=== PATIENT | female | born 1980 | race Caucasian/White ===

== ENCOUNTER 2025-06-17 09:52 | Outpatient (CLI) | payer OTHER, SELFPAY ==
--- NOTE | ~2025-06-17 | US_ITS ---
EXAMINATION: US FNA w image guidance DATE: 06/17/2025 11:17 INDICATION: Bilateral thyroid nodules TECHNIQUE: A time-out was performed to verify the patient's name, date of , and procedure to be performed. The procedure and its benefits and risks were discussed with the patient. Risks specifically discussed included bleeding and infection. The patient understood the risks and agreed to proceed. The neck was prepped and draped in the usual sterile manner. 3 mL 1% lidocaine was used for local anesthesia. 6 passes were made with a 25G needle into the lesion. Appropriate needle location was documented with continuous sonographic guidance. A sterile bandage was applied. There were no immediate complications. FINDINGS: Grayscale ultrasound images demonstrate biopsy needles advanced into an approximately 1.5 cm very hypoechoic nodule with irregular margins at the inferior left thyroid lobe. IMPRESSION: 1. Successful ultrasound-guided fine needle aspiration of a 1.5 cm TI RADS 5 nodule at the inferior left thyroid lobe. Reviewed, dictated and finalized at location A. IMPRESSION: 1. Successful ultrasound-guided fine needle aspiration of a 1.5 cm TI RADS 5 n odule at the inferior left thyroid lobe.
--- OUTSIDE RECORDS SUMMARY | 2025-06-17 10:57 | XMS_ITS | Clinical Summary ---
Author Organization [facility] Address [address] [place] [address] Care Team Providers Care Seo Manager Name Role Phone Sindy Aquino MD, [place] Primary Care Provider [phone] Family History Medical History Relation Comments Breast Cancer Neg Hx Social History Tobacco Use Types Packs/Day Years Used Date Smoking Tobacco: Never Assessed Comments No Sex and Gender Information Value Date Recorded Sex Assigned at Female 02/05/2025 9:05 AM CDT Legal Sex Female 1:39 PM CDT Gender Identity Not on file Sexual Orientation Not on file Plan of Treatment Health Maintenance Due Date Last Done Comments Cervical Cancer Screening Pa p Smear (Age 30 to 64) Every 3 Years 1979 Colorectal Cancer Screening Colonoscopy (10 Years) 1979 Annual Physical 1982 Hepatitis C 1997 DTaP, Tdap and Td Vaccines ( 1 - Tdap) 1998 Hepatitis B Vaccines (1 of 3 - 19+ 3-dose series) 1998 HPV Vaccines (1 - 3-dose SCD M series) 2006 Cervical Cancer Screening Pa p with HPV Testing (Age 30 to 64) Every 5 Years 2009 Cervical Cancer Screening with HPV 2009 COVID-19 Vaccine (2023-2 5 season) 2025 Mammogram Screening 02/05/2027 02/05/2025 Meningococcal B Vaccine Aged Out No l onger eligible based on patient's age to complete this topic Meningococcal Vaccine Aged Out No dorothea sarai eligible based on patient's age to complete this topic Pneumococcal Vaccine: Pediat rics (0 to 5 Years) and At-Risk Patients (6 to 49 Years) Aged Out No longer eligi ble based on patient's age to complete this topic RSV Immunizations Under 20 Months Aged Out No longer eligible based on patient's age to complete this topic Procedures Procedure Name Priority Date/Time Associated Diagnosis Comments MG SCREENING W VAISHALI TRISH DIGI Routine 02/05/2025 9:40 AM CDT Encounter for screening for malignant neoplasm of breast from Last 3 Months or Most Recently Relevant to Health Maintenance Results * MG SCREENING W VAISHALI TRISH DIGI (02/05/2025 9:40 AM CDT) Anatomical Region Laterality Modality Breast Bilateral Mammography 02/26/2025 4:29 PM CDT Impressions 02/26/2025 4:35 PM CDT ===== IMPRESSION: ===== 1. No mammographic evidence of malignancy. Assessment: ACR BI-RADS 1 - NEGATIVE Recommendation: 1:Routine Screening Bilateral Comments: Ordered By: CORTEZ CALLAHAN V Interpreted By: Kaitlyn Varela, 02/26/2025 4:29 PM Narrative 02/26/2025 4:35 PM CDT [address] [place] [address] EXAMINATION: Digital bilateral screening mammogram with 3-D tomosynthesis EXAM DATE/TIME: 02/05/2025 9:30 AM REASON FOR EXAM: Routine screening COMPARISON: Reestablish baseline. Prior outside exam cannot be obtained. Technique: Digital screening mammography of both breasts was performed in addition to 3-D Tomosynthesis technique. This study was read with the assistance of a computer-aided detection system. Tissue density: There are scattered areas of fibroglandular density. Findings: There is no focal asymmetry, dominant mass lesion, area of skin thickening, or cluster of suspicious appearing calcifications in either breast to suggest malignancy. Cortez Aquino MD MAMMO Final Result from Last 3 Months or Most Recently Relevant to Health Maintenance Insurance [employer] Care Teams Seo Manager Relationship Specialty Start Date End Date Cortez Callahan MD [facility] [address] [place] [address] PCP - General INTERNAL MEDICINE 02/05/25
--- NOTE | 2025-06-17 11:05 | CY_PTH ---
PATIENT: Aide Walter LOC: [facility] U#:[id number] AGE/SX: 44/F ROOM: RE06/17/[address]: Cortez CallahanMD : 1980 BED: DIS: 06/17/2025 SPEC #: [id number] RECD: 06/17/25 11:07 STATUS: [facility] REQ #: [id number] RANGEL: 06/17/25 11:[address]: SindyCortez V. DEPT: [facility] Cytology RECD BY: Adeline Lau ENTERED: 06/17/25 11:07 SP TYPE: Cytology OTHR DR: TRACK ANNOUNCER PHYSICIAN Tissues: A - FNA Thyroid Procedures: Hematoxylin and Eosin Stain Cell Block Fine Needle Aspiration Evaluation Fine Needle Aspiration Pathologist
== END 2025-06-17 09:53 | disposition home or self-care (01) ==
PROVIDERS: Visit Provider Internal Medicine
DX: E07.9 Disorder of thyroid, unspecified (principal); L40.9 Psoriasis, unspecified; K59.00 Constipation, unspecified; F41.9 Anxiety disorder, unspecified; F31.9 Bipolar disorder, unspecified; B18.2 Chronic viral hepatitis C; I10 Essential (primary) hypertension; Z90.710 Acquired absence of both cervix and uterus
CPT/HCPCS: 10005; 88172; 88173; 88305